=== PATIENT | female | born 1995 | race Two or more races ===

== ENCOUNTER 2018-11-24 23:15 | Emergency (ER) | payer OTHER ==
[~2018-11-24] VITALS: Ht 162.6 cm; Wt 58.1 kg
[2018-11-24 23:26] VITALS: BP 137/83
[2018-11-24] MEDS ORDERED: LORAZEPAM 1 MG TABLET ONE (23:44)
[2018-11-25] MEDS ORDERED: LORAZEPAM 1 MG TABLET PO ONE
== END 2018-11-24 23:48 | disposition home or self-care (01) ==
LOC: ER 23:18
DX: F41.9 Anxiety disorder, unspecified (principal); Z88.8 Allergy status to other drugs, medicaments and biological substances
CPT/HCPCS: 99284; A4606